=== PATIENT | male | born 1990 | race Caucasian/White ===

== ENCOUNTER 2020-03-10 17:19 | Emergency (ER) | payer OTHER ==
[2020-03-10 17:23] VITALS: BP 134/78; PULSE 60; RESP 18; TEMP 97.9
[2020-03-10] MEDS ORDERED: LIDOCAINE 1% INJ 10MG/ML (20 ML MDV) SQ ONE (17:31)
[2020-03-10] MEDS ORDERED: BACITRACIN OINT 1 EACH PACKET TOPICAL ONE (17:31)
[2020-03-10] MEDS ORDERED: DIPH,PERTUS(ACELL)TETVAC-LF 0.5 ML VIAL IM ONE (17:31)
--- NOTE | 2020-03-10 17:40 | ED ---
Wound/Laceration HPI - General Chief Complaint: Wound/Laceration Stated Complaint: injured rt index finger Time Seen by Provider: 03/10/20 17:24 Source: patient Mode of arrival: ambulatory Limitations: no limitations - History of Present Illness Initial Comments: Patient is a 30-year-old male presenting to the emergency Department with complaints of laceration to his right index finger. Patient states he was cleaning a slicer machine at work when it cut his right finger. He does have a laceration on the distal end of his right index finger. Bleeding is controlled at this time with a bandage. He did not return numbers last tetanus vaccine. He is not on blood thinners. There are no further complaints. - Related Data Allergies Allergy/AdvReac Type Severity Reaction Status Date / Time No Known Allergies Allergy Verified 03/10/20 17:23 Review of Systems ROS Statement: Those systems with pertinent positive or pertinent negative responses have been documented in the HPI. ROS Other: All systems not noted in ROS Statement are negative. Past Medical History Past Medical History: No Reported History History of Any Multi-Drug Resistant Organisms: None Reported Past Surgical History: No Surgical Hx Reported Past Psychological History: No Psychological Hx Reported Smoking Status: Current every day smoker Past Alcohol Use History: Occasional Past Drug Use History: Marijuana General Exam - General Exam Comments Initial Comments: GENERAL: Patient is well-developed and well-nourished. Patient is nontoxic and in no acute distress. HEAD: Atraumatic, normocephalic. EYES: Pupils equal round and reactive to light, extraocular movements intact, sclera anicteric, conjunctiva are normal. Eyelids were unremarkable. ENT: TMs normal, nares patent, oropharynx clear without exudates. Moist mucous membranes. NECK: Normal range of motion, supple without lymphadenopathy or JVD. LUNGS: Unlabored respirations. Breath sounds clear to auscultation bilaterally and equal. No wheezes rales or rhonchi. HEART: Regular rate and rhythm without murmurs, rubs or gallops. ABDOMEN: Soft, nontender, normoactive bowel sounds. No guarding, no rebound. No masses appreciated. : Deferred MUSCULOSKELETAL: Normal extremities with adequate strength and normal range of motion, no pitting or edema. No clubbing or cyanosis. NEUROLOGICAL: Patient is alert and oriented x 3. Normal speech, normal gait. PSYCH: Normal mood, normal affect. SKIN: Warm, Dry, normal turgor, no rashes. Patient has a 1 cm laceration to the dist al end of the right index finger, lateral aspect. There is no nail involvement. No active bleeding. Limitations: no limitations Course Vital Signs 03/10/20 17:21 Temperature 97.9 F Pulse Rate 60 Respiratory 18 Rate Blood Pressure 134/78 O2 Sat by Pulse 98 Oximetry Procedures - Laceration Laceration #1 Consent Obtained: verbal consent Indication: laceration Site: hand (Right index finger distal and) Size (cm): 1 Description: irregular Depth: simple, single layer Anesthetic Used: lidocaine 1% Anesthesia Technique: local infiltration Amount (mls): 3 Pre-repair: irrigated extensively Type of Sutures: nylon Size of Sutures: 5-0 Number of Sutures: 3 Technique: simple, interrupted Patient Tolerated Procedure: well Medical Decision Making - Medical Decision Making Patient is a 30-year-old male here with a 1 cm laceration to the distal end of his right index finger. Bleeding is controlled at this time. His tetanus vaccine was updated today. Since wound was cleaned, closed with 3, 5-0 sutures. It was reinforced with Steri-Strips. Patient tolerated procedure well. He is stable for discharge. He will have sutures removed in 7-10 days. He is in agreement with this plan of care. Disposition Clinical Impression: Laceration of right index finger Disposition: HOME SELF-CARE Condition: Stable Instructions (If sedation given, give patient instructions): Care For Your Stitches (ED) Additional Instructions: Please return to the Emergency Department if symptoms worsen or any other concerns. Stitches need to be removed in 7-10 days. Keep wound covered while working. Keep area clean and dry. Is patient prescribed a controlled substance at d/c from ED?: No Referrals: None,Stated [Primary Care Provider] - 1-2 days
== END 2020-03-10 18:34 | disposition home or self-care (01) ==
LOC: EC 17:19
DX: S61.210A Laceration without foreign body of right index finger without damage to nail, initial encounter (principal); F17.200 Nicotine dependence, unspecified, uncomplicated; Z23 Encounter for immunization; W31.89XA Contact with other specified machinery, initial encounter; Y93.89 Activity, other specified; Y99.0 Civilian activity done for income or pay
CPT/HCPCS: 99282; 12001; 90471; 90715; J2001

== ENCOUNTER → 2020-03-12 | Outpatient (CLI) | payer OTHER ==
--- NOTE | 2020-03-12 15:41 | XR ---
Second digit right hand HISTORY: Trauma and pain 3 views of the second digit right hand There is an overlying bandage. Bone mineralization, joint spaces and alignment are maintained. IMPRESSION: No fracture or dislocation is evident. Follow-up as indicated for persistent symptoms.
== END | disposition home or self-care (01) ==
LOC: RADXRMAIN 15:11
PROVIDERS: ATTEND Emergency Medicine
DX: S61.200A Unspecified open wound of right index finger without damage to nail, initial encounter (principal); S67.190A Crushing injury of right index finger, initial encounter

== ENCOUNTER 2020-10-07 09:51 | Emergency (ER) | payer OTHER ==
[2020-10-07 10:17] VITALS: RESP 18; TEMP 98.1
[2020-10-07] MEDS ORDERED: KETOROLAC 15 MG/ML 1 ML VIAL IM STA (10:25)
--- NOTE | 2020-10-07 10:29 | ED ---
General Adult HPI - General Chief complaint: Extremity Injury, Upper Stated complaint: Fall Time Seen by Provider: 10/07/20 10:19 Source: patient, RN notes reviewed Mode of arrival: ambulatory - History of Present Illness Initial comments: Patient is a 30-year-old male that presents to the emergency department complaining of left-sided rib pain. He notes that he recently just tripped over his dog fell outside and then started having rib pain. He notes the pain is only significant on deep inspiration. He denied any other extremity issues or pain such as ankles. He noted that his pain was approximately an 8 out of 10 with no relief. He denied any shortness of breath or difficulty breathing at this time. He was well-appearing while sitting up in bed during the exam i nterview. He denied any shortness of breath headache nausea vomiting diarrhea constipation fever fatigue chills. - Related Data Allergies Allergy/AdvReac Type Severity Reaction Status Date / Time No Known Allergies Allergy Verified 10/07/20 10:16 Review of Systems ROS Statement: Those systems with pertinent positive or pertinent negative responses have been documented in the HPI. ROS Other: All systems not noted in ROS Statement are negative. Past Medical History Past Medical History: No Reported History History of Any Multi-Drug Resistant Organisms: None Reported Past Surgical History: No Surgical Hx Reported Past Psychological History: No Psychological Hx Reported Smoking Status: Current every day smoker Past Alcohol Use History: Occasional Past Drug Use History: Marijuana General Exam General appearance: alert, in no apparent distress, obese, other (Some tenderness on the left sided lower ribs down the axillary line.) Head exam: Present: atraumatic, normocephalic, normal inspection Eye exam: Present: normal appearance, PERRL, EOMI. Absent: scleral icterus, conjunctival injection, periorbital swelling Neck exam: Present: normal inspection. Absent: tenderness, meningismus, lymphadenopathy Respiratory exam: Present: normal lung sounds bilaterally. Absent: respiratory distress, wheezes, rales, rhonchi, stridor Cardiovascular Exam: Present: regular rate, normal rhythm, normal heart sounds. Absent: systolic murmur, diastolic murmur, rubs, gallop, clicks GI/Abdominal exam: Present: soft, normal bowel sounds. Absent: distended, tenderness, guarding, rebound, rigid Extremities exam: Present: normal inspection, full ROM, normal capillary refill. Absent: tenderness, pedal edema, joint swelling, calf tenderness Neurological exam: Present: alert, oriented X3, CN II-XII intact Psychiatric exam: Present: normal affect, normal mood Skin exam: Present: warm, dry, intact, normal color. Absent: rash Course Vital Signs 10/07/20 10/07/20 10:14 11:39 Temperature 98.1 F 98.1 F Pulse Rate 69 60 Respiratory 18 18 Rate Blood Pressure 131/72 117/68 O2 Sat by Pulse 98 97 Oximetry Medical Decision Making - Medical Decision Making 22-year-old male complaining of left-sided rib pain after tripping and falling over dog. X-ray of the ribs, 15 mg of Toradol ordered. X-ray negative for any acute fractures. Case discussed with Dr. Park, patient can discharge home with follow-up primary care as needed. - Radiology Data Radiology results: report reviewed, image reviewed Rib x-ray: No acute displaced fracture clearly evident bilaterally. Visualized lungs are clear. Overlying soft tissue is unremarkable bilaterally. Disposition Clinical Impression: Contusion of rib on left side Disposition: HOME SELF-CARE Condition: Stable Instructions (If sedation given, give patient instructions): Rib Contusion (ED) Additional Instructions: Please return to the Emergency Department if symptoms worsen or any other concerns. Continue take deep breaths to promote healthy lung function. Take Tylenol Motrin as needed for pain control. Follow-up with primary care as needed. Is patient prescribed a controlled substance at d/c from ED?: No Referrals: None,Stated [Primary Care Provider] - 1-2 days Time of Disposition: 12:08
--- NOTE | 2020-10-07 10:59 | XR ---
EXAMINATION TYPE: XR ribs bilateral DATE OF EXAM: 10/07/2020 COMPARISON: NONE HISTORY: Fall injury with bilateral rib pain. TECHNIQUE: A frontal and oblique images of the bilateral ribs. FINDINGS: No acute displaced rib fractures are clearly evident bilaterally. Visualized lungs are bashir r. Overlying soft tissue is unremarkable bilaterally. IMPRESSION: As above.
[2020-10-07 11:42] VITALS: BP 117/68; PULSE 60
== END 2020-10-07 12:13 | disposition home or self-care (01) ==
LOC: EC 09:51
DX: S20.212A Contusion of left front wall of thorax, initial encounter (principal); F17.200 Nicotine dependence, unspecified, uncomplicated; W01.0XXA Fall on same level from slipping, tripping and stumbling without subsequent striking against object, initial encounter
CPT/HCPCS: 71110; 99284; 96372; J1885